=== PATIENT | female | born 1990 | race African-American/Black ===

== ENCOUNTER 2017-06-06 17:45 | Emergency (ER) | payer SELFPAY ==
--- NOTE | 2017-06-06 17:51 | PDOC ---
Rapid Medical Evaluation Time Seen by Provider: 06/06/17 17:49 Medical Evaluation: Allergies Allergy/AdvReac Type Severity Reaction Status Date / Time No Known Allergies Allergy Verified 11/05/15 18:07 06/06/17 17:49 I have performed a brief in-person evaluation of this patient. The patient presents with a chief complaint of: R ear pain since last night, denies fever, chills, NVD Pertinent physical exam findings: +tenderness to tragus, no mastoid tenderness I have ordered the following: motrin The patient will proceed to the ED for further evaluation. Discharge Disposition - Diagnosis Rib pain on left side - Referrals - Patient Instructions - Post Discharge Activity
[2017-06-06 18:00] VITALS: BP 116/73; PULSE 72; TEMP 98.5; BMI 24.5
[2017-06-06] MEDS: IBUPROFEN 600 MG TABLET (FP) PO ONE ×2 (20:05→20:29)
--- NOTE | 2017-06-06 20:16 | PDOC ---
History of Present Illness - General Chief Complaint: Ear Problem Stated Complaint: EAR PAIN Time Seen by Provider: 06/06/17 17:49 History Source: Patient Exam Limitations: No Limitations - History of Present Illness Initial Comments: 06/06/17 20:11 CHIEF COMPLAINT: Right Ear pain HISTORY OF PRESENT ILLNESS: This is an otherwise healthy, 26-year-old female. She presents complaining of right ear pain. She reports that her ear feels as if it clogged and wants it flushed. Pain when touching tragus. Was offered Motrin in triage, refused. REVIEW OF SYSTEMS: GENERAL/CONSTITUTIONAL: No fever or chills. No weakness. No weight change. HEAD, EYES, EARS, NOSE AND THROAT: Right ear pain since last night. No radiating pain. No change in hearing. NEUROLOGIC: No headache. No vertigo, loss of consciousness, or loss of sensation. ALLERGIC/IMMUNOLOGIC: No hives or skin allergy. No latex allergy. PHYSICAL EXAM: GENERAL: The patient is awake, alert, and fully oriented, in no acute distress. HEAD: Normal with no signs of trauma. ENT: Left auditory canal and TM are normal. Right auditory canal pale with fluid. TM pearly saeed with normal light reflex. No Tenderness over mastoid. Pain to tragus. Pupils equal, round and reactive to light, extraocular movements intact, sclera anicteric, conjunctiva clear. Neck supple. No adenopathy. NEUROLOGICAL: Normal speech, normal gait. CN II-XII grossly intact. PSYCH: Normal mood, normal affect. SKIN: Warm, Dry, normal turgor, no rashes or lesions noted. Past History - Past Medical History Allergies/Adverse Reactions: Allergies Allergy/AdvReac Type Severity Reaction Status Date / Time No Known Allergies Allergy Verified 06/06/17 17:57 Home Medications: Ambulatory Orders Amox-Tr/K Cl [Augmentin - 875Mg Tablet] 1 tab PO BID #14 tablet 06/06/17 COPD: No - Suicide/Smoking/Psychosocial Hx Smoking History: Never smoked Have you smoked in the past 12 months: No Information on smoking cessation initiated: No Hx Alcohol Use: No Drug/Substance Use Hx: No Substance Use Type: None *Physical Exam - Vital Signs Last Vital Signs Temp Pulse Resp BP Pulse Ox 98.5 F 72 18 116/73 100 06/06/17 17:57 06/06/17 17:57 06/06/17 17:57 06/06/17 17:57 06/06/17 17:57 ED Treatment Course - Medications Given in the ED: ED Medications Discontinued Medications Generic Name Dose Route Start Last Admin Trade Name Riley PRN Reason Stop Dose Admin Ibuprofen 600 mg 06/06/17 17:58 06/06/17 20:05 Motrin - PO 06/06/17 17:59 Not Given ONCE ONE Medical Decision Making - Medical Decision Making 06/06/17 20:16 A/P: Patient with an otitis with effusion will DC on Augmentin follow-up with ENT Motrin as needed for pain *DC/Admit/Observation/Transfer Diagnosis at time of Disposition: Otitis media with effusion Qualifiers: Laterality: right Qualified Code(s): H65.91 - Unspecified nonsuppurative otitis media, right ear - Discharge Dispostion Disposition: HOME Condition at time of disposition: Stable Admit: No - Prescriptions Prescriptions: Amox-Tr/K Cl [Augmentin - 875Mg Tablet] 1 tab PO BID #14 tablet - Referrals Referrals: Nilo Guzman MD [Staff Physician] - - Patient Instructions Printed Discharge Instructions: Middle Ear Infection Additional Instructions: I'm starting you on antibiotics for otitis with effusion. Follow-up with ENT, recommend Motrin as needed for pain - Post Discharge Activity Forms/Work/School Notes: Back to Work
== END 2017-06-06 20:29 | disposition home or self-care (01) ==
LOC: JERFT 17:45
DX: H65.91 Unspecified nonsuppurative otitis media, right ear (principal)
CPT/HCPCS: 99281-25